=== PATIENT | male | born 1955 | race Caucasian/White ===

== ENCOUNTER → 2024-09-26 06:15 | Day surgery (SDC) | payer OTHER, SELFPAY ==
[2024-09-26 07:21] LABS: Glucose - Point of Care 125 mg/dl (70-99)
== END ==
LOC: GI 06:15
PROVIDERS: ATTENDING PHYSICIAN Specialist
DX: Z12.11 Encounter for screening for malignant neoplasm of colon (principal); K55.20 Angiodysplasia of colon without hemorrhage; D12.3 Benign neoplasm of transverse colon; D12.8 Benign neoplasm of rectum; K62.1 Rectal polyp; Z80.0 Family history of malignant neoplasm of digestive organs; Z86.0101 Personal history of adenomatous and serrated colon polyps
CPT/HCPCS: 45385; 45380; 88305; 82962